=== PATIENT | male | born 1955 | race Caucasian/White ===

== ENCOUNTER 2020-08-24 08:37 | Emergency (ER) | payer MEDICARE ==
[~2020-08-24] VITALS: Ht 167.6 cm; Wt 90.7 kg
[2020-08-24] MEDS ORDERED: ASPI81TA31 PO (08:49)
--- NOTE | 2020-08-24 08:56 | NUR ---
MD@bedside, medical screening exam in progress
[2020-08-24] MEDS ORDERED: ACETAMINOPHEN ES 500 MG TABLET PO ONE (09:15)
[2020-08-24] MEDS ORDERED: CYCLOBENZAPRINE HCL 10 MG TABLET PO ONE (09:15)
[2020-08-24] MEDS ORDERED: ACETAMINOPHEN ES 500 MG TABLET ONE (09:19)
[2020-08-24] MEDS ORDERED: CYCLOBENZAPRINE HCL 10 MG TABLET ONE (09:19)
[2020-08-24] MEDS ORDERED: FINA5TAB11 PO (09:53)
[2020-08-24] MEDS ORDERED: TRAZ-257 PO (09:53)
[2020-08-24] MEDS ORDERED: TROS20TA3 PO (09:53)
--- NOTE | 2020-08-24 09:59 | NUR ---
Urinal@ bedside since 935. Urine specimen was requested from patient. Patient is drinking more water@the moment but still unble to provide urine specimen. MD was updated.
--- NOTE | 2020-08-24 10:22 | NUR ---
More water was given, still for urine specimen.
[2020-08-24] MEDS ORDERED: CYCL10TA9 PO (10:25)
[2020-08-24] MEDS ORDERED: ACET-73 PO (10:25)
--- NOTE | 2020-08-24 10:36 | NUR ---
Patient discharged to home in stable condition. Written and verbal after care instructions given. Patient verbalizes understanding of instructions, coming to pick patient up. All belongings given to patient, steady gait, no acute distress, vitals stable. Stressed follow up or return to ER for worsening s/s.
[2020-08-24 10:38] VITALS: BP 138/88
== END 2020-08-24 10:36 | disposition home or self-care (01) ==
LOC: ER 08:39
DX: R51.9 Headache, unspecified (principal); M79.18 Myalgia, other site; Z98.84 Bariatric surgery status; V43.03XA Car driver injured in collision with pick-up truck in nontraffic accident, initial encounter; Y93.89 Activity, other specified; Y92.59 Other trade areas as the place of occurrence of the external cause
CPT/HCPCS: A4663; A9150

== ENCOUNTER 2022-11-24 09:15 | Emergency (ER) | payer MEDICARE, BC ==
[~2022-11-24] VITALS: Ht 167.6 cm; Wt 92.1 kg
[~2022-11-24 09:15] MED LIST: ACET-73 PO; ASPI81TA31 PO; CYCL10TA9 PO; FINA5TAB11 PO; TRAZ-257 PO; TROS20TA3 PO
[2022-11-24] MEDS ORDERED: MORPHINE SULFATE 4 MG/1 ML DISP.SYRIN IV ONE (09:45)
[2022-11-24] MEDS ORDERED: APIX5TAB PO (09:50)
[2022-11-24] MEDS ORDERED: LOSA25TA27 PO (09:50)
[2022-11-24] MEDS ORDERED: SERT-440 PO (09:50)
[2022-11-24] MEDS ORDERED: [UNRECOGNIZED DRUG - CODE] PO (09:51)
[2022-11-24] MEDS ORDERED: [UNRECOGNIZED DRUG - CODE] PO (09:51)
[2022-11-24] MEDS ORDERED: ROSU10TA29 PO (09:53)
[2022-11-24 09:56] LABS: BASOPHILS % (AUTO) 0.3 % (0.0-2.0); EOSINOPHILS # (AUTO) 0.1 K/uL (0.0-0.7); EOSINOPHILS % (AUTO) 0.9 % (0.0-7.0); HEMATOCRIT 43.6 % (36.7-47.1); HEMOGLOBIN 14.4 g/dL (12.5-16.3); LYMPHOCYTES # (AUTO) 1.6 K/uL (0.8-4.8); LYMPHOCYTES % (AUTO) 19.7 % (20.5-51.5); MEAN CORPUSCULAR HEMOGLOBIN 28.5 uug (23.8-33.4); MEAN CORPUSCULAR HGB CONC 33 g/dL (32.5-36.3); MEAN CORPUSCULAR VOLUME 86.4 fL (73.0-96.2); MONOCYTES # (AUTO) 0.6 K/uL (0.1-1.30); MONOCYTES % (AUTO) 7.3 % (0.0-11.0); NEUTROPHILS % (AUTO) 71.8 % (38.5-71.5); PLATELET COUNT (AUTO) 113 K/uL (152-348); RED BLOOD CELL COUNT(AUTO) 5.05 MIL/uL (4.06-5.63); RED CELL DISTRIBUTION WIDTH 16.3 % (12.1-16.2); WHITE BLOOD COUNT (AUTO) 8.4 K/uL (3.6-10.2)
[2022-11-24 10:02] LABS: DIFFERENTIAL COMMENT 1
[2022-11-24 10:05] LABS: ETHANOL < 3 MG/DL (0-10)
[2022-11-24] MEDS ORDERED: MORPHINE SULFATE 4 MG/1 ML DISP.SYRIN ONE ×2 (10:15→10:57)
[2022-11-24 10:16] LABS: ALANINE AMINOTRANSFERASE 46 U/L (16-63); ALBUMIN 3.6 g/dL (3.4-5.0); ALKALINE PHOSPHATASE 82 U/L (50-136); ASPARTATE AMINOTRANSFERASE 26 U/L (15-37); BILIRUBIN,DIRECT 0.2 mg/dL (0.0-0.2); BILIRUBIN,TOTAL 0.6 mg/dL (0.2-1.0); CALCIUM 8.5 mg/dL (8.5-10.1); CARBON DIOXIDE 30 mmol/L (21-32); CHLORIDE 106 mmol/L (98-107); GLUCOSE 99 mg/dL (74-106); POTASSIUM 4.4 mmol/L (3.5-5.1); SODIUM SERUM 141 mmol/L (136-145); UREA NITROGEN, BLOOD 25 mg/dL (7-18)
[2022-11-24] MEDS ORDERED: MORPHINE SULFATE 2 MG/1 ML DISP.SYRIN IV ONE (11:15)
[2022-11-24] MEDS ORDERED: HYDR-3980 PO (12:12)
[2022-11-24 12:27] VITALS: BP 148/82; O2SAT 97
== END 2022-11-24 12:28 | disposition home or self-care (01) ==
LOC: ER 09:15
DX: S52.502A Unspecified fracture of the lower end of left radius, initial encounter for closed fracture (principal); R07.89 Other chest pain; Z86.73 Personal history of transient ischemic attack (TIA), and cerebral infarction without residual deficits; Z79.899 Other long term (current) drug therapy; Z79.82 Long term (current) use of aspirin; W01.0XXA Fall on same level from slipping, tripping and stumbling without subsequent striking against object, initial encounter; Y93.89 Activity, other specified; Y92.89 Other specified places as the place of occurrence of the external cause; Y99.8 Other external cause status
CPT/HCPCS: 29125; 36415; 71045; 73110; 80048; 80076; 80320; 84484; 85025; 93005; 96374; 96376; 99285; J2270; A4663; G0480

== ENCOUNTER 2024-06-08 14:16 | Inpatient (IN) | payer MEDICARE, BC ==
[~2024-06-08] VITALS: Ht 165.1 cm; Wt 97.5 kg
[~2024-06-08 14:16] MED LIST changes: +APIX5TAB PO; -ASPI81TA31 PO; +HYDR-3980 PO; +LOSA25TA27 PO; +ROSU10TA29 PO; +SERT-440 PO; +[UNRECOGNIZED DRUG - CODE] PO; +[UNRECOGNIZED DRUG - CODE] PO
[2024-06-08] MEDS ORDERED: NIFE30TA91 PO (14:35)
[2024-06-08] MEDS ORDERED: CITA20TA16 PO (14:35)
[2024-06-08] MEDS ORDERED: GABA300C PO (14:35)
[2024-06-08] MEDS ORDERED: TAMS-3 PO (14:35)
[2024-06-08] MEDS ORDERED: MAGNESIUM HYDROXIDE 30 ML LIQUID UDC PO PRN (16:30)
[2024-06-08] MEDS ORDERED: REMEDY ESSENTIAL ZINC PASTE 113 GM TP PRN (16:30)
[2024-06-08] MEDS ORDERED: ACETAMINOPHEN 325 MG TABLET PO PRN (16:30)
[2024-06-08] MEDS ORDERED: ONDANSETRON 4 MG/2 ML VIAL IV PRN (16:30)
[2024-06-08] MEDS ORDERED: HYDROCODONE/APAP 5-325MG TABLET ONE (17:14)
[2024-06-08] MEDS ORDERED: TDAP DIPH,PERTUSS,TET VAC/PF 0.5 ML DISP.SYRIN IM ONE (17:16)
[2024-06-08] MEDS: TDAP DIPH,PERTUSS,TET VAC/PF 0.5 ML DISP.SYRIN IM ONE (17:18)
[2024-06-08] MEDS: HYDROCODONE/APAP 5-325MG TABLET PO ONE (17:34)
[2024-06-08 18:42] LABS: BASOPHILS % (AUTO) 0.3 % (0.0-2.0); EOSINOPHILS % (AUTO) 0.4 % (0.0-7.0); HEMATOCRIT 41.1 % (36.7-47.1); LYMPHOCYTES # (AUTO) 1.8 K/uL (0.8-4.8); LYMPHOCYTES % (AUTO) 19.9 % (20.5-51.5); MEAN CORPUSCULAR HEMOGLOBIN 31.2 uug (23.8-33.4); MEAN CORPUSCULAR HGB CONC 34 g/dL (32.5-36.3); MEAN CORPUSCULAR VOLUME 91.3 fL (73.0-96.2); MONOCYTES # (AUTO) 0.6 K/uL (0.1-1.30); MONOCYTES % (AUTO) 6.6 % (0.0-11.0); NEUTROPHILS # (AUTO) 6.8 K/uL (1.8-8.9); NEUTROPHILS % (AUTO) 72.8 % (38.5-71.5); PLATELET COUNT (AUTO) 119 K/uL (152-348); WHITE BLOOD COUNT (AUTO) 9.3 K/uL (3.6-10.2)
[2024-06-08 18:45] LABS: DIFFERENTIAL COMMENT 1
[2024-06-08 20:29] LABS: ALANINE AMINOTRANSFERASE 57 U/L (16-63); ALBUMIN 3.7 g/dL (3.4-5.0); ALKALINE PHOSPHATASE 81 U/L (50-136); ASPARTATE AMINOTRANSFERASE 27 U/L (15-37); BILIRUBIN,DIRECT 0.2 mg/dL (0.0-0.2); BILIRUBIN,TOTAL 0.6 mg/dL (0.2-1.0); CALCIUM 9.2 mg/dL (8.5-10.1); CARBON DIOXIDE 26 mmol/L (21-32); GLUCOSE 93 mg/dL (74-106); TOTAL PROTEIN, SERUM 6.6 g/dL (6.4-8.2); UREA NITROGEN, BLOOD 28 mg/dL (7-18)
[2024-06-08 20:49] LABS: CHLORIDE 105 mmol/L (98-107); NT-PRO BNP 468 pg/mL (0-125); POTASSIUM 4.2 mmol/L (3.5-5.1); SODIUM SERUM 138 mmol/L (136-145)
[2024-06-08 21:30] VITALS: BP 151/63
[2024-06-08 22:00] VITALS: BP 148/82; TEMP 97.4; O2SAT 97
[2024-06-08 23:00] VITALS: BP 154/95; O2SAT 97
[2024-06-09] VITALS (15 sets, daily range): BP systolic 130–180; BP diastolic 50–127; TEMP 97.4–97.5; O2SAT 93–100
[2024-06-09 05:10] LABS: BASOPHILS % (AUTO) 0.3 % (0.0-2.0); EOSINOPHILS # (AUTO) 0.1 K/uL (0.0-0.7); EOSINOPHILS % (AUTO) 0.7 % (0.0-7.0); HEMATOCRIT 40.6 % (36.7-47.1); HEMOGLOBIN 13.9 g/dL (12.5-16.3); LYMPHOCYTES # (AUTO) 1.6 K/uL (0.8-4.8); LYMPHOCYTES % (AUTO) 18.8 % (20.5-51.5); MEAN CORPUSCULAR HEMOGLOBIN 31.2 uug (23.8-33.4); MEAN CORPUSCULAR HGB CONC 34 g/dL (32.5-36.3); MEAN CORPUSCULAR VOLUME 90.9 fL (73.0-96.2); MONOCYTES # (AUTO) 0.7 K/uL (0.1-1.30); MONOCYTES % (AUTO) 7.8 % (0.0-11.0); NEUTROPHILS # (AUTO) 6.1 K/uL (1.8-8.9); NEUTROPHILS % (AUTO) 72.4 % (38.5-71.5); PLATELET COUNT (AUTO) 115 K/uL (152-348); RED BLOOD CELL COUNT(AUTO) 4.46 MIL/uL (4.06-5.63); WHITE BLOOD COUNT (AUTO) 8.4 K/uL (3.6-10.2)
[2024-06-09 05:20] LABS: DIFFERENTIAL COMMENT 1
[2024-06-09 05:56] LABS: CALCIUM 8.2 mg/dL (8.5-10.1); CREATININE 0.8 mg/dL (0.6-1.3); MAGNESIUM 1.9 mg/dL (1.8-2.4); PHOSPHOROUS 3.4 mg/dL (2.5-4.9); POTASSIUM 4.1 mmol/L (3.5-5.1)
[2024-06-09] MEDS: MULTIVITAMINS,THERAPEUTIC TABLET PO SCH (09:37)
[2024-06-09] MEDS: TAMSULOSIN HCL 0.4 MG CAP.SR.24H PO SCH (09:37)
[2024-06-09] MEDS: GABAPENTIN 300 MG CAPSULE PO SCH (09:37)
[2024-06-09] MEDS: LOSARTAN POTASSIUM 50 MG TABLET PO SCH (09:38)
[2024-06-09] MEDS: FINASTERIDE 5 MG TABLET PO SCH (09:39)
[2024-06-09] MEDS: ATORVASTATIN 20 MG TABLET PO SCH (10:12)
[2024-06-09] MEDS: SERTRALINE HCL 50 MG TABLET PO SCH (10:12)
[2024-06-09] MEDS: CITALOPRAM 20 MG TABLET PO SCH (10:36)
[2024-06-09] MEDS: CALCIUM CARB/VITAMIN D 500MG-200UNITS TABLET PO SCH (10:36)
[2024-06-09] MEDS: NIFEdipine XL 30 MG TABSR PO SCH (10:39)
[2024-06-09] MEDS: hydrALAZINE HCL 20 MG/1 ML VIAL IV PRN (10:47)
[2024-06-09] MEDS ORDERED: TRAZODONE 50 MG TABLET PO SCH (21:00)
== END 2024-06-09 12:30 | disposition home or self-care (01) | DRG 85 ==
LOC: ER 14:16 → CCU 19:30
PROVIDERS: ADMIT Student in an Organized Health Care Education/Training Program; ATTEND Student in an Organized Health Care Education/Training Program
DX: S06.300A Unspecified focal traumatic brain injury without loss of consciousness, initial encounter (principal); Q28.3 Other malformations of cerebral vessels; Y04.2XXA Assault by strike against or bumped into by another person, initial encounter; Y93.89 Activity, other specified; Y92.410 Unspecified street and highway as the place of occurrence of the external cause; M25.551 Pain in right hip; I10 Essential (primary) hypertension; R23.3 Spontaneous ecchymoses; R79.89 Other specified abnormal findings of blood chemistry; E66.9 Obesity, unspecified; Z98.84 Bariatric surgery status; Z86.73 Personal history of transient ischemic attack (TIA), and cerebral infarction without residual deficits; Z95.2 Presence of prosthetic heart valve; Z79.01 Long term (current) use of anticoagulants; Z90.49 Acquired absence of other specified parts of digestive tract; E78.5 Hyperlipidemia, unspecified; Z79.899 Other long term (current) drug therapy; Z98.890 Other specified postprocedural states; N40.0 Benign prostatic hyperplasia without lower urinary tract symptoms; Z68.35 Body mass index [BMI] 35.0-35.9, adult
CPT/HCPCS: 36415; 70450; 71045; 72125; 72170; 83735; 84100; 84484; 85025; 85730; 90715; A4606; G0378; J0360